=== PATIENT | female | born 1950 | race Caucasian/White ===

== ENCOUNTER → 2016-09-22 | Outpatient (CLI) | payer BC, OTHER ==
[2016-09-22 08:03] LABS: ABSOLUTE EOSINOPHILS # (AUTO) 0.1 10^3/uL (0.0-0.6); ABSOLUTE LYMPHOCYTES (AUTO) 1.5 10^3/uL (0.5-4.7); ABSOLUTE MONOCYTES (AUTO) 0.3 10^3/uL (0.1-1.4); BASOPHILS % (AUTO) 0.6 % (0-2); HEMATOCRIT 40.9 % (36.0-47.0); HEMOGLOBIN 13.6 g/dL (12.0-15.5); HGB HCT DIFFERENCE -0.1; LYMPHOCYTES % (AUTO) 30.1 % (13-45); MEAN CORPUSCULAR HEMOGLOBIN 29.2 pg (27.0-33.4); MEAN CORPUSCULAR HGB CONC 33.3 g/dL (32.0-36.0); MEAN CORPUSCULAR VOLUME 88 fl (80-97); MONOCYTES % (AUTO) 6.5 % (3-13); RED BLOOD COUNT 4.66 10^6/uL (3.72-5.28); RED CELL DISTRIBUTION WIDTH 13.5 % (11.5-14.0); SEGMENTED NEUTROPHILS % (AUTO) 60.8 % (42-78); WHITE BLOOD COUNT 4.9 10^3/uL (4.0-10.5)
== END ==
LOC: OD 07:05
PROVIDERS: ATTEND Family Medicine
DX: E53.8 Deficiency of other specified B group vitamins (principal); E55.9 Vitamin D deficiency, unspecified
CPT/HCPCS: 36415; 82306; 82607; 85025

== ENCOUNTER → 2017-03-26 | Outpatient (CLI) | payer BC, MEDICARE, OTHER ==
[2017-03-26 09:14] LABS: ABSOLUTE BASOPHILS # (AUTO) 0.1 10^3/uL (0.0-0.2); ABSOLUTE EOSINOPHILS # (AUTO) 0.1 10^3/uL (0.0-0.6); ABSOLUTE LYMPHOCYTES (AUTO) 1.4 10^3/uL (0.5-4.7); ABSOLUTE MONOCYTES (AUTO) 0.3 10^3/uL (0.1-1.4); ABSOLUTE NEUT (AUTO) 3.2 10^3/uL (1.7-8.2); EOSINOPHILS % (AUTO) 1.7 % (0-6); HEMATOCRIT 40.1 % (36.0-47.0); HEMOGLOBIN 13.1 g/dL (12.0-15.5); HGB HCT DIFFERENCE -0.8; LYMPHOCYTES % (AUTO) 27.9 % (13-45); MEAN CORPUSCULAR HEMOGLOBIN 28.9 pg (27.0-33.4); MEAN CORPUSCULAR HGB CONC 32.7 g/dL (32.0-36.0); MEAN CORPUSCULAR VOLUME 88 fl (80-97); MONOCYTES % (AUTO) 6.6 % (3-13); RED BLOOD COUNT 4.53 10^6/uL (3.72-5.28); RED CELL DISTRIBUTION WIDTH 13.1 % (11.5-14.0); SEGMENTED NEUTROPHILS % (AUTO) 62.8 % (42-78); WHITE BLOOD COUNT 5.2 10^3/uL (4.0-10.5)
[2017-03-26 09:28] LABS: ALANINE AMINOTRANSFERASE 20 U/L (9-52); ALBUMIN 4.4 g/dL (3.5-5.0); ALKALINE PHOSPHATASE 57 U/L (38-126); ANION GAP 9 (5-19); ASPARTATE AMINO TRANSFERASE 20 U/L (14-36); BILIRUBIN,DIRECT 0.3 mg/dL (0.0-0.4); BILIRUBIN,TOTAL 0.6 mg/dL (0.2-1.3); BLOOD UREA NITROGEN 16 mg/dL (7-20); CALCIUM 9.2 mg/dL (8.4-10.2); CARBON DIOXIDE 28 mmol/L (22-30); CHLORIDE 105 mmol/L (98-107); CHOLESTEROL 215.36 mg/dL (0-200); CREATININE RESULT 0.73 mg/dL (0.52-1.25); Direct HDL 87 mg/dL (>40); GLUCOSE 101 mg/dL (75-110); POTASSIUM 4.5 mmol/L (3.6-5.0); SODIUM 141.5 mmol/L (137-145); TOTAL PROTEIN 6.9 g/dL (6.3-8.2); TRIGLYCERIDES 60 mg/dL (<150)
[2017-03-26 09:38] LABS: DIRECT LDL 99 mg/dL (<100)
== END ==
LOC: OD 07:07
PROVIDERS: ATTEND Family Medicine
DX: E53.8 Deficiency of other specified B group vitamins (principal); R73.9 Hyperglycemia, unspecified; I48.0 Paroxysmal atrial fibrillation; E55.9 Vitamin D deficiency, unspecified; Z79.899 Other long term (current) drug therapy
CPT/HCPCS: 36415; 80053; 80061; 82306; 82607; 83036; 85025

== ENCOUNTER → 2017-10-06 | Outpatient (CLI) | payer MEDICARE, OTHER ==
[2017-10-06 08:25] LABS: ABSOLUTE EOSINOPHILS # (AUTO) 0.1 10^3/uL (0.0-0.6); ABSOLUTE LYMPHOCYTES (AUTO) 1.3 10^3/uL (0.5-4.7); ABSOLUTE MONOCYTES (AUTO) 0.3 10^3/uL (0.1-1.4); ABSOLUTE NEUT (AUTO) 3.1 10^3/uL (1.7-8.2); EOSINOPHILS % (AUTO) 1.7 % (0-6); HEMATOCRIT 39.5 % (36.0-47.0); HEMOGLOBIN 13.4 g/dL (12.0-15.5); LYMPHOCYTES % (AUTO) 26.3 % (13-45); MEAN CORPUSCULAR HEMOGLOBIN 29.3 pg (27.0-33.4); MEAN CORPUSCULAR HGB CONC 33.9 g/dL (32.0-36.0); MEAN CORPUSCULAR VOLUME 87 fl (80-97); MONOCYTES % (AUTO) 6.6 % (3-13); PLATELET COUNT 248 10^3/uL (150-450); RED BLOOD COUNT 4.56 10^6/uL (3.72-5.28); RED CELL DISTRIBUTION WIDTH 12.9 % (11.5-14.0); SEGMENTED NEUTROPHILS % (AUTO) 64.4 % (42-78); TOTAL CELLS COUNTED % (AUTO) 100 %; WHITE BLOOD COUNT 4.8 10^3/uL (4.0-10.5)
[2017-10-06 08:47] LABS: ALANINE AMINOTRANSFERASE 25 U/L (9-52); ALBUMIN 4.9 g/dL (3.5-5.0); ALKALINE PHOSPHATASE 60 U/L (38-126); ANION GAP 7 (5-19); ASPARTATE AMINO TRANSFERASE 20 U/L (14-36); BILIRUBIN,DIRECT 0.2 mg/dL (0.0-0.4); BILIRUBIN,TOTAL 0.4 mg/dL (0.2-1.3); BLOOD UREA NITROGEN 14 mg/dL (7-20); CALCIUM 9.9 mg/dL (8.4-10.2); CARBON DIOXIDE 32 mmol/L (22-30); CHLORIDE 103 mmol/L (98-107); CHOLESTEROL 221.92 mg/dL (0-200); GLUCOSE 107 mg/dL (75-110); POTASSIUM 4.7 mmol/L (3.6-5.0); SODIUM 142.2 mmol/L (137-145); TOTAL PROTEIN 7.2 g/dL (6.3-8.2); TRIGLYCERIDES 65 mg/dL (<150)
[2017-10-06 08:58] LABS: DIRECT LDL 103 mg/dL (<100)
[2017-10-07 06:38] LABS: HEPATITIS C VIRUS AB 0.1 s/co ratio (0.0-0.9)
[2017-10-07 13:25] LABS: VITAMIN D 25-HYDROXY 34.5 ng/mL (30.0-100.0)
== END ==
LOC: OD 07:16
PROVIDERS: ATTEND Family Medicine
DX: E55.9 Vitamin D deficiency, unspecified (principal); Z79.899 Other long term (current) drug therapy; R73.01 Impaired fasting glucose; E53.8 Deficiency of other specified B group vitamins; Z13.220 Encounter for screening for lipoid disorders; Z11.59 Encounter for screening for other viral diseases
CPT/HCPCS: 36415; 80053; 80061; 82306; 82607; 83036; 85025; 86803; 86804

== ENCOUNTER → 2018-03-30 | Outpatient (CLI) | payer MEDICARE, OTHER ==
[2018-03-30 08:20] LABS: ABSOLUTE EOSINOPHILS # (AUTO) 0.1 10^3/uL (0.0-0.6); ABSOLUTE LYMPHOCYTES (AUTO) 1.3 10^3/uL (0.5-4.7); ABSOLUTE MONOCYTES (AUTO) 0.3 10^3/uL (0.1-1.4); ABSOLUTE NEUT (AUTO) 3.2 10^3/uL (1.7-8.2); BASOPHILS % (AUTO) 0.7 % (0-2); EOSINOPHILS % (AUTO) 2.1 % (0-6); HEMATOCRIT 38.4 % (36.0-47.0); HEMOGLOBIN 13.1 g/dL (12.0-15.5); LYMPHOCYTES % (AUTO) 26.6 % (13-45); MEAN CORPUSCULAR HEMOGLOBIN 29.9 pg (27.0-33.4); MEAN CORPUSCULAR HGB CONC 34.1 g/dL (32.0-36.0); MEAN CORPUSCULAR VOLUME 88 fl (80-97); MONOCYTES % (AUTO) 6.6 % (3-13); PLATELET COUNT 240 10^3/uL (150-450); RED BLOOD COUNT 4.39 10^6/uL (3.72-5.28); RED CELL DISTRIBUTION WIDTH 13.5 % (11.5-14.0); TOTAL CELLS COUNTED % (AUTO) 100 %
[2018-03-30 09:04] LABS: ANION GAP 12 (5-19); BLOOD UREA NITROGEN 15 mg/dL (7-20); CALCIUM 9.5 mg/dL (8.4-10.2); CARBON DIOXIDE 30 mmol/L (22-30); CHLORIDE 104 mmol/L (98-107); GLUCOSE 86 mg/dL (75-110); POTASSIUM 4.4 mmol/L (3.6-5.0); SODIUM 145.5 mmol/L (137-145)
[2018-03-30 09:15] LABS: FREE T4 (FREE THYROXINE) 0.93 ng/dL (0.78-2.19)
[2018-03-30 09:29] LABS: THYROID STIMULATING HORMONE 1.93 uIU/mL (0.47-4.68)
== END ==
LOC: OD 07:17
PROVIDERS: ATTEND Family Medicine
DX: I48.0 Paroxysmal atrial fibrillation (principal); E55.9 Vitamin D deficiency, unspecified; E53.8 Deficiency of other specified B group vitamins; R73.01 Impaired fasting glucose; Z79.01 Long term (current) use of anticoagulants; Z79.899 Other long term (current) drug therapy
CPT/HCPCS: 36415; 80048; 82306; 82607; 83036; 84439; 84443; 85025

== ENCOUNTER → 2018-03-31 | Outpatient (CLI) | payer MEDICARE, OTHER ==
--- NOTE | 2018-04-01 08:41 | XCELERA REPORT ---
[address] [address] Lower Extremity Arterial Evaluation Name: CINDY VAN Age: 67 yrs Gender: Female : 1950 Patient Status: Outpatient Patient Location: Study Date: 03/31/2018 01:19 PM Procedure: A color flow and duplex scan of the lower extremity arteries was performed bilaterally with velocity and waveform anaylsis. Ankle brachial indicies performed. Reason For Study: PVD Ordering Physician: NATY LEMON Performed By: Letha Kraus Measurements and Calculations Right Left WILD ANIMAL CARETAKER PSV 203.3 161.1 cm/sec Prox PFA PSV -90.4 -75.5 cm/sec Prox SFA PSV -139.0 -158.7 cm/sec Mid SFA PSV -125.7 -136.2 cm/sec Dist SFA PSV -139.7 -90.8 cm/sec Prox Pop A PSV 78.1 82.0 cm/sec Dist RANDOLPH PSV 124.6 136.9 cm/sec Dist EXCHANGE CLERK PSV 89.1 108.1 cm/sec Rah Pedis PSV 93.7 69.8 cm/sec Right Side Arterial Evaluation Normal velocity and triphasic waveforms noted from the Common Femoral artery to the infrageniculate vessels in the Dorsalis Pedis. 0-19% stenosis at the Dorsalis Pedis artery. Ankle Brachial index is 1.14. Left Side Arterial Evaluation Normal velocity and triphasic waveforms noted from the Common Femoral artery to the Posterior Tibial. Biphasic Anterior Tibial artery.. 0-19% stenosis at the Anterior Tibial artery.. Ankle Brachial index is 1.00. Interpretation Summary Mild hemodynamically significant lesions in the bilateral lower extremities, on duplex imaging, at rest. : NATY LEMON > Florencio Ruvalcaba
== END ==
LOC: SP 12:52
PROVIDERS: ATTEND Family Medicine
DX: I73.9 Peripheral vascular disease, unspecified (principal)
CPT/HCPCS: 93925

== ENCOUNTER → 2018-09-29 | Outpatient (CLI) | payer MEDICARE, OTHER ==
[2018-09-29 08:13] LABS: ABSOLUTE EOSINOPHILS # (AUTO) 0.1 10^3/uL (0.0-0.6); ABSOLUTE LYMPHOCYTES (AUTO) 1.5 10^3/uL (0.5-4.7); ABSOLUTE MONOCYTES (AUTO) 0.4 10^3/uL (0.1-1.4); ABSOLUTE NEUT (AUTO) 3.7 10^3/uL (1.7-8.2); BASOPHILS % (AUTO) 0.6 % (0-2); EOSINOPHILS % (AUTO) 1.7 % (0-6); HEMATOCRIT 40.9 % (36.0-47.0); HEMOGLOBIN 13.8 g/dL (12.0-15.5); LYMPHOCYTES % (AUTO) 26.3 % (13-45); MEAN CORPUSCULAR HEMOGLOBIN 29.1 pg (27.0-33.4); MEAN CORPUSCULAR HGB CONC 33.7 g/dL (32.0-36.0); MEAN CORPUSCULAR VOLUME 86 fl (80-97); MONOCYTES % (AUTO) 6.6 % (3-13); PLATELET COUNT 256 10^3/uL (150-450); RED BLOOD COUNT 4.74 10^6/uL (3.72-5.28); RED CELL DISTRIBUTION WIDTH 13.2 % (11.5-14.0); SEGMENTED NEUTROPHILS % (AUTO) 64.8 % (42-78); TOTAL CELLS COUNTED % (AUTO) 100 %; WHITE BLOOD COUNT 5.7 10^3/uL (4.0-10.5)
[2018-09-29 08:35] LABS: ALANINE AMINOTRANSFERASE 22 U/L (9-52); ALBUMIN 4.9 g/dL (3.5-5.0); ALKALINE PHOSPHATASE 70 U/L (38-126); ANION GAP 9 (5-19); ASPARTATE AMINO TRANSFERASE 20 U/L (14-36); BILIRUBIN,DIRECT 0.1 mg/dL (0.0-0.4); BILIRUBIN,TOTAL 0.7 mg/dL (0.2-1.3); BLOOD UREA NITROGEN 14 mg/dL (7-20); CALCIUM 9.9 mg/dL (8.4-10.2); CARBON DIOXIDE 29 mmol/L (22-30); CHLORIDE 103 mmol/L (98-107); GLUCOSE 102 mg/dL (75-110); POTASSIUM 4.1 mmol/L (3.6-5.0); SODIUM 140.5 mmol/L (137-145); TOTAL PROTEIN 7.2 g/dL (6.3-8.2); TRIGLYCERIDES 65 mg/dL (<150)
[2018-09-29 08:46] LABS: DIRECT LDL 95 mg/dL (<100)
== END ==
LOC: OD 07:23
PROVIDERS: ATTEND Family Medicine
DX: E55.9 Vitamin D deficiency, unspecified (principal); R73.01 Impaired fasting glucose; E53.8 Deficiency of other specified B group vitamins; Z79.899 Other long term (current) drug therapy; I48.0 Paroxysmal atrial fibrillation; Z79.01 Long term (current) use of anticoagulants
CPT/HCPCS: 36415; 80053; 80061; 82306; 82607; 83036; 85025

== ENCOUNTER → 2018-12-29 | Outpatient (CLI) | payer MEDICARE, OTHER ==
[2018-12-29 08:27] LABS: ABSOLUTE EOSINOPHILS # (AUTO) 0.1 10^3/uL (0.0-0.6); ABSOLUTE LYMPHOCYTES (AUTO) 1.8 10^3/uL (0.5-4.7); ABSOLUTE MONOCYTES (AUTO) 0.3 10^3/uL (0.1-1.4); ABSOLUTE NEUT (AUTO) 3.2 10^3/uL (1.7-8.2); BASOPHILS % (AUTO) 0.7 % (0-2); HEMATOCRIT 38.3 % (36.0-47.0); HEMOGLOBIN 13.2 g/dL (12.0-15.5); LYMPHOCYTES % (AUTO) 32.5 % (13-45); MEAN CORPUSCULAR HEMOGLOBIN 30.2 pg (27.0-33.4); MEAN CORPUSCULAR HGB CONC 34.5 g/dL (32.0-36.0); MEAN CORPUSCULAR VOLUME 88 fl (80-97); MONOCYTES % (AUTO) 6.3 % (3-13); PLATELET COUNT 218 10^3/uL (150-450); RED BLOOD COUNT 4.37 10^6/uL (3.72-5.28); RED CELL DISTRIBUTION WIDTH 13.5 % (11.5-14.0); SEGMENTED NEUTROPHILS % (AUTO) 58.5 % (42-78); TOTAL CELLS COUNTED % (AUTO) 100 %; WHITE BLOOD COUNT 5.5 10^3/uL (4.0-10.5)
== END ==
LOC: OD 07:14
PROVIDERS: ATTEND Family Medicine
DX: Z79.01 Long term (current) use of anticoagulants (principal)
CPT/HCPCS: 36415; 85025

== ENCOUNTER → 2019-03-28 | Outpatient (CLI) | payer MEDICARE, OTHER ==
[2019-03-28 08:27] LABS: ABSOLUTE BASOPHILS # (AUTO) 0.1 10^3/uL (0.0-0.2); ABSOLUTE EOSINOPHILS # (AUTO) 0.1 10^3/uL (0.0-0.6); ABSOLUTE LYMPHOCYTES (AUTO) 1.8 10^3/uL (0.5-4.7); ABSOLUTE MONOCYTES (AUTO) 0.3 10^3/uL (0.1-1.4); ABSOLUTE NEUT (AUTO) 3.8 10^3/uL (1.7-8.2); BASOPHILS % (AUTO) 0.9 % (0-2); EOSINOPHILS % (AUTO) 1.6 % (0-6); HEMATOCRIT 39.6 % (36.0-47.0); HEMOGLOBIN 13.1 g/dL (12.0-15.5); LYMPHOCYTES % (AUTO) 29.8 % (13-45); MEAN CORPUSCULAR HEMOGLOBIN 29.3 pg (27.0-33.4); MEAN CORPUSCULAR HGB CONC 33.1 g/dL (32.0-36.0); MEAN CORPUSCULAR VOLUME 88 fl (80-97); MONOCYTES % (AUTO) 5.5 % (3-13); PLATELET COUNT 258 10^3/uL (150-450); RED BLOOD COUNT 4.47 10^6/uL (3.72-5.28); RED CELL DISTRIBUTION WIDTH 13.2 % (11.5-14.0); SEGMENTED NEUTROPHILS % (AUTO) 62.2 % (42-78); TOTAL CELLS COUNTED % (AUTO) 100 %; WHITE BLOOD COUNT 6.1 10^3/uL (4.0-10.5)
== END ==
LOC: OD 07:09
PROVIDERS: ATTEND Family Medicine
DX: Z51.81 Encounter for therapeutic drug level monitoring (principal); Z79.01 Long term (current) use of anticoagulants
CPT/HCPCS: 36415; 85025

== ENCOUNTER → 2019-04-05 | Outpatient (CLI) | payer MEDICARE, OTHER ==
[2019-04-05 08:55] LABS: ALANINE AMINOTRANSFERASE 20 U/L (9-52); ALBUMIN 4.4 g/dL (3.5-5.0); ALKALINE PHOSPHATASE 56 U/L (38-126); ANION GAP 8 (5-19); ASPARTATE AMINO TRANSFERASE 23 U/L (14-36); BILIRUBIN,DIRECT 0.3 mg/dL (0.0-0.4); BILIRUBIN,TOTAL 0.7 mg/dL (0.2-1.3); BLOOD UREA NITROGEN 17 mg/dL (7-20); CALCIUM 9.5 mg/dL (8.4-10.2); CARBON DIOXIDE 29 mmol/L (22-30); CHLORIDE 103 mmol/L (98-107); GLUCOSE 94 mg/dL (75-110); POTASSIUM 4.5 mmol/L (3.6-5.0); SODIUM 140.1 mmol/L (137-145); TOTAL PROTEIN 6.8 g/dL (6.3-8.2)
[2019-04-05 09:08] LABS: FREE T4 (FREE THYROXINE) 0.99 ng/dL (0.78-2.19)
[2019-04-05 09:22] LABS: THYROID STIMULATING HORMONE 1.65 uIU/mL (0.47-4.68)
== END ==
LOC: OD 07:07
PROVIDERS: ATTEND Family Medicine
DX: I95.1 Orthostatic hypotension (principal); R53.83 Other fatigue; E55.9 Vitamin D deficiency, unspecified; E53.8 Deficiency of other specified B group vitamins
CPT/HCPCS: 36415; 80053; 82306; 82533; 82607; 84439; 84443

== ENCOUNTER → 2019-06-23 | Outpatient (CLI) | payer MEDICARE, OTHER ==
[2019-06-23 08:01] LABS: ABSOLUTE EOSINOPHILS # (AUTO) 0.1 10^3/uL (0.0-0.6); ABSOLUTE LYMPHOCYTES (AUTO) 1.6 10^3/uL (0.5-4.7); ABSOLUTE MONOCYTES (AUTO) 0.3 10^3/uL (0.1-1.4); ABSOLUTE NEUT (AUTO) 2.8 10^3/uL (1.7-8.2); BASOPHILS % (AUTO) 0.8 % (0-2); EOSINOPHILS % (AUTO) 2.5 % (0-6); HEMATOCRIT 39.2 % (36.0-47.0); HEMOGLOBIN 13.1 g/dL (12.0-15.5); LYMPHOCYTES % (AUTO) 33.1 % (13-45); MEAN CORPUSCULAR HEMOGLOBIN 29.5 pg (27.0-33.4); MEAN CORPUSCULAR HGB CONC 33.4 g/dL (32.0-36.0); MEAN CORPUSCULAR VOLUME 88 fl (80-97); MONOCYTES % (AUTO) 6.9 % (3-13); PLATELET COUNT 228 10^3/uL (150-450); RED BLOOD COUNT 4.44 10^6/uL (3.72-5.28); RED CELL DISTRIBUTION WIDTH 13.4 % (11.5-14.0); SEGMENTED NEUTROPHILS % (AUTO) 56.7 % (42-78); TOTAL CELLS COUNTED % (AUTO) 100 %; WHITE BLOOD COUNT 4.9 10^3/uL (4.0-10.5)
== END ==
LOC: OD 07:21
PROVIDERS: ATTEND Family Medicine
DX: Z51.81 Encounter for therapeutic drug level monitoring (principal); Z79.01 Long term (current) use of anticoagulants
CPT/HCPCS: 36415; 85025

== ENCOUNTER 2019-08-12 12:59 | Emergency (ER) | payer MEDICARE, OTHER ==
[2019-08-12] MEDS ORDERED: DIPH/PERTUSS(ACELL)/TETANUS VAC/PF 0.5 ML SYR (>=10YO) IM ONE (13:16)
[2019-08-12] MEDS ORDERED: ACETAMINOPHEN 325 MG TABLET PO ONE (13:16)
[2019-08-12] MEDS ORDERED: OXYCODONE HCL IR 5 MG TABLET PO ONE (13:16)
--- NOTE | 2019-08-12 13:18 | ER Document Report ---
ED Medical Screen (RME) - General Chief Complaint: Arm Problem Stated Complaint: FALL/RIGHT SHOULDER PAIN Time Seen by Provider: 08/12/19 13:12 Primary Care Provider: NATY LEMON MD [Primary Care Provider] - Follow up as needed TRAVEL OUTSIDE OF THE [place] IN LAST 30 DAYS: No - HPI Notes: 08/12/19 13:16 Patient is a 68-year-old female who presents complaining of possible fracture to her forearm status post fall and complaining of left wrist pain as well. Patient states that she is going up the stairs when her fell on top of her and she landed on her arms. She did not hit her head or lose conscious otherwise. She is able to ambulate without difficulty. Last tetanus was more than 5 years ago. Denies drug allergies. I have treated and performed a rapid initial assessment of this patient. A comprehensive ED assessment and evaluation of the patient, analysis of test results and completion of medical decision making process will be conducted by additional ED providers. PHYSICAL EXAMINATION: GENERAL: Well-appearing, well-nourished and in no acute distress. A&Ox4. Answers questions appropriately. There is a small puncture noted to the wrist with deformity and tenderness to the distal forearm. ? Open fracture. There is tenderness to the left wrist as well. No obvious tenderness to the shoulders or clavicles. No midline tenderness of the neck. Head is otherwise atraumatic at this time. - Related Data Allergies/Adverse Reactions: No Known Allergies Allergy (Unverified 08/12/19 13:15) Home Medications: asa 81 Past Medical History - Social History Chew tobacco use (# tins/day): No Frequency of alcohol use: None Drug Abuse: None - Past Medical History Cardiac Medical History: Denies: Hx Coronary Artery Disease, Hx Heart Attack, Hx Hypertension Pulmonary Medical History: Denies: Hx Asthma, Hx Bronchitis, Hx COPD, Hx Pneumonia Neurological Medical History: Denies: Hx Seizures Musculoskeltal Medical History: Denies Hx Arthritis Past Surgical History: Denies: Hx Hysterectomy - Immunizations Hx Diphtheria, Pertussis, Tetanus Vaccination: No Physical Exam - Vital signs Vitals: Temp Pulse Resp BP Pulse Ox 97.4 F 67 18 124/67 96 08/12/19 13:05 08/12/19 13:05 08/12/19 13:05 08/12/19 13:05 08/12/19 13:05 Course - Vital Signs Vital signs: Temp Pulse Resp BP Pulse Ox 97.4 F 67 18 124/67 96 08/12/19 13:05 08/12/19 13:05 08/12/19 13:05 08/12/19 13:05 08/12/19 13:05 Doctor's Discharge - Discharge Referrals: NATY LEMON MD [Primary Care Provider] - Follow up as needed
--- NOTE | 2019-08-12 14:16 | RADIOLOGY REPORT (SQ) ---
EXAM DESCRIPTION: FOREARM RIGHT; HUMERUS RIGHT COMPLETED DATE/TIME: 08/12/2019 1:59 pm REASON FOR STUDY: pain s/p fall, deformity noted, ?open fx; pain s/p fall COMPARISON: None. NUMBER OF VIEWS: Two views. TECHNIQUE: Two radiographic images acquired of the right forearm, including elbow and wrist in at le ast one projection. LIMITATIONS: None. FINDINGS: MINERALIZATION: Normal. BONES: Comminuted and impacted intra-articular fractures of the distal right radius. The distal righ t ulna is suspicious for nondisplaced fracture. Widening of the scapholunate interval is noted. SOFT TISSUES: No obvious swelling or foreign body. OTHER: No other significant finding. IMPRESSION: 1. Comminuted and impacted intra-articular fractures of the distal right radius. The di stal right ulna is suspicious for nondisplaced fracture. Widening of the scapholunate interval is no jordyn. 2. No fracture or dislocation of the right humerus or proximal radius or ulna. TECHNICAL DOCUMENTATION: JOB ID: [id number] [email or web address]- All Rights Reserved Reading location - IP/workstation name: [email or web address]
--- NOTE | 2019-08-12 14:16 | RADIOLOGY REPORT (SQ) ---
EXAM DESCRIPTION: FOREARM RIGHT; HUMERUS RIGHT COMPLETED DATE/TIME: 08/12/2019 1:59 pm REASON FOR STUDY: pain s/p fall, deformity noted, ?open fx; pain s/p fall COMPARISON: None. NUMBER OF VIEWS: Two views. TECHNIQUE: Two radiographic images acquired of the right forearm, including elbow and wrist in at le ast one projection. LIMITATIONS: None. FINDINGS: MINERALIZATION: Normal. BONES: Comminuted and impacted intra-articular fractures of the distal right radius. The distal righ t ulna is suspicious for nondisplaced fracture. Widening of the scapholunate interval is noted. SOFT TISSUES: No obvious swelling or foreign body. OTHER: No other significant finding. IMPRESSION: 1. Comminuted and impacted intra-articular fractures of the distal right radius. The di stal right ulna is suspicious for nondisplaced fracture. Widening of the scapholunate interval is no jordyn. 2. No fracture or dislocation of the right humerus or proximal radius or ulna. TECHNICAL DOCUMENTATION: JOB ID: [id number] [employer]- All Rights Reserved Reading location - IP/workstation name: [email or web address]
--- NOTE | 2019-08-12 14:18 | RADIOLOGY REPORT (SQ) ---
EXAM DESCRIPTION: WRIST LEFT 3 VIEWS COMPLETED DATE/TIME: 08/12/2019 1:59 pm REASON FOR STUDY: pain s/p fall COMPARISON: None. NUMBER OF VIEWS: Three views. TECHNIQUE: AP, lateral, and oblique radiographic images acquired of the left wrist. LIMITATIONS: None. FINDINGS: MINERALIZATION: Normal. BONES: There is a tiny ossific fragment projecting over the dorsal distal left radius on lateral view only. SOFT TISSUES: No soft tissue swelling. No foreign body. OTHER: No other significant finding. IMPRESSION: There is a tiny ossific fragment projecting over the dorsal distal left radius on latera l view only, concerning for avulsion fracture. Correlate with palpable point tenderness. TECHNICAL DOCUMENTATION: JOB ID: [id number] [employer]- All Rights Reserved Reading location - IP/workstation name: [email or web address]
--- NOTE | 2019-08-12 14:50 | ER Document Report ---
ED Fall - General Chief Complaint: Arm Problem Stated Complaint: FALL/RIGHT SHOULDER PAIN Time Seen by Provider: 08/12/19 13:12 Primary Care Provider: NATY LEMON MD [Primary Care Provider] - Follow up as needed HERNAN DOMÍNGUEZ JR, DO [ACTIVE PROVISIONAL STAFF] - 08/14/19 (Call Wednesday morning to schedule a Wednesday appointment.) Mode of Arrival: Ambulatory Information source: Patient Notes: This 68-year-old female patient comes emergency room after she reports her spouse fell on her while she was helping him up the stairs. She injured her right arm and right wrist, her left elbow and left wrist. The right wrist is the area of the worst pain. There was no loss consciousness. Patient is on medication now is a baby aspirin every day for her paroxysmal atrial fibrillation. TRAVEL OUTSIDE OF THE [place] IN LAST 30 DAYS: No - Related data Allergies/Adverse Reactions: No Known Allergies Allergy (Unverified 08/12/19 13:15) Home Medications: asa 81 Past Medical History - General Information source: Patient - Social History Smoking Status: Former Smoker Cigarette use (# per day): No Chew tobacco use (# tins/day): No Smoking Education Provided: No Frequency of alcohol use: Occasional Drug Abuse: None Lives with: Spouse/Significant other Family History: Reviewed & Not Pertinent Patient has suicidal ideation: No Patient has homicidal ideation: No - Past Medical History Cardiac Medical History: Reports: Hx Atrial Fibrillation - Paroxysmal atrial fibrillation Past Surgical History: Reports: Hx Orthopedic Surgery - Left knee meniscus tear surgery, Hx Tonsillectomy, Hx Tubal Ligation. Denies: Hx Hysterectomy - Immunizations Hx Diphtheria, Pertussis, Tetanus Vaccination: No Review of Systems - Review of Systems Constitutional: No symptoms reported EENT: No symptoms reported Cardiovascular: No symptoms reported Respiratory: No symptoms reported Gastrointestinal: No symptoms reported Genitourinary: No symptoms reported Female Genitourinary: Post menopausal Musculoskeletal: No symptoms reported Skin: No symptoms reported Hematologic/Lymphatic: No symptoms reported Neurological/Psychological: No symptoms reported Physical Exam - Vital signs Vitals: Temp Pulse Resp BP Pulse Ox 97.4 F 67 18 124/67 96 08/12/19 13:05 08/12/19 13:05 08/12/19 13:05 08/12/19 13:05 08/12/19 13:05 Interpretation: Normal - General General appearance: Alert In distress: Mild - HEENT Head: Normocephalic, Atraumatic Eyes: Normal Pupils: PERRL - Respiratory Respiratory status: No respiratory distress Breath sounds: Normal - Cardiovascular Rhythm: Regular Heart sounds: Normal auscultation Murmur: No - Abdominal Inspection: Normal - Back Back: Normal - Extremities General upper extremity: Other - Right shoulder upper arm elbow forearm are little bit tender with no deformity. Right wrist is grossly swollen, ecchymotic, exquisitely tender with some radial deviation of the hand. The left wrist has some swelling and tenderness, no ecchymosis. The left elbow is tender to palpate the radial head. General lower extremity: Normal inspection - Neurological Neuro grossly intact: Yes - Psychological Associated symptoms: Normal affect, Normal mood Course - Re-evaluation Re-evalutation: 08/12/19 16:14 The sugar tong splint was placed on the right forearm and wrist by the PCT. It fits well and provides considerable comfort to the patient. She has good capillary refill and normal sensation to her fingertips. A sling was provided for the right arm by the PCT and it also fits well and provide support for the extremity. A Velcro cock-up splint was placed on the left wrist, it also provides comfort by limiting motion at the wrist. - Vital Signs Vital signs: Temp Pulse Resp BP Pulse Ox 97.4 F 67 18 124/67 96 08/12/19 13:05 08/12/19 13:05 08/12/19 13:05 08/12/19 13:05 08/12/19 13:05 - Diagnostic Test Radiology reviewed: Image reviewed, Reports reviewed - Right humerus forearm and wrist show comminuted, impacted intra-articular fractures of the distal right radius the distal right ulna is suspicious for nondisplaced fracture. There is widening of the scapholunate interval noted. - Consults Dr. Domínguez Time consulted: 15:50 Consulted provider: follow-up in office - Will see in the office on Wednesday. Discharge - Discharge Clinical Impression: Fracture of right wrist Qualifiers: Encounter type: initial encounter Fracture type: closed Qualified Code(s): S62.101A - Fracture of unspecified carpal bone, right wrist, initial encounter for closed fracture Sprain of left wrist Qualifiers: Encounter type: initial encounter Qualified Code(s): S63.502A - Unspecified sprain of left wrist, initial encounter Condition: Stable Disposition: HOME, SELF-CARE Additional Instructions: Your x-rays show a fracture of the right wrist and sprain of the left wrist with possible minor avulsion fracture in the right wrist. Elevate your hand is much as possible. Use ice packs to help reduce swelling. Take the pain medication as needed. Call Dr. Domínguez at [facility] Wednesday for a Wednesday appointment. If you have any problems making the appointment, call him on his cell phone at [phone]. RETURN TO THE EMERGENCY ROOM IF ANY NEW OR WORSENING SYMPTOMS. Prescriptions: Oxycodone HCl/Acetaminophen [Percocet 5-325 mg Tablet] 1 tab PO ASDIR PRN #15 tablet PRN Reason: Referrals: NATY LEMON MD [Primary Care Provider] - Follow up as needed HERNAN DOMÍNGUEZ JR, DO [ACTIVE PROVISIONAL STAFF] - 08/14/19 (Call Wednesday to schedule a Wednesday appointment.)
--- NOTE | 2019-08-12 15:23 | RADIOLOGY REPORT (SQ) ---
EXAM DESCRIPTION: ELBOW LEFT OVER 2 VIEWS COMPLETED DATE/TIME: 08/12/2019 3:08 pm REASON FOR STUDY: Fall, radial head pain COMPARISON: None. NUMBER OF VIEWS: Four views. TECHNIQUE: AP, lateral, and both oblique radiographic images acquired of the left elbow. LIMITATIONS: None. FINDINGS: MINERALIZATION: Normal. BONES: No acute fracture or dislocation. No worrisome bone lesions. JOINT: No effusion. SOFT TISSUES: No soft tissue swelling. No foreign body. OTHER: No other significant finding. IMPRESSION: NEGATIVE STUDY OF THE LEFT ELBOW. NO RADIOGRAPHIC EVIDENCE OF ACUTE INJURY. TECHNICAL DOCUMENTATION: JOB ID: [id number] [employer]- All Rights Reserved Reading location - IP/workstation name: [email or web address]
[2019-08-12 16:29] VITALS: BP 158/87
== END 2019-08-12 16:33 | disposition home or self-care (01) ==
LOC: ER 12:59
DX: S62.101A Fracture of unspecified carpal bone, right wrist, initial encounter for closed fracture (principal); S63.502A Unspecified sprain of left wrist, initial encounter; M25.511 Pain in right shoulder; W03.XXXA Other fall on same level due to collision with another person, initial encounter; Y93.F9 Activity, other caregiving; Y92.009 Unspecified place in unspecified non-institutional (private) residence as the place of occurrence of the external cause; Z98.51 Tubal ligation status; I48.91 Unspecified atrial fibrillation; Z79.82 Long term (current) use of aspirin; Z23 Encounter for immunization
CPT/HCPCS: 99283; 90471; 73080; 73090; 73060; 73110; 90715; 29125; L3908; A9270 ×2

== ENCOUNTER 2019-08-24 08:00 | Day surgery (SDC) | payer MEDICARE, OTHER ==
[~2019-08-24 08:00] MED LIST: ACETAMINOPHEN 325 MG TABLET PO PRN; CEFAZOLIN SODIUM 2 GM in DEXTROSE 5%-WATER 100 ML IV PRN; LACTATED RINGERS 1000 ML IV PRN; LIDOCAINE 0.5% INJ-PF (5 MG/ML) 50 ML SDV SUBCUT PRN; OXYCODONE HCL SR 10 MG TABLET PO PRN
[2019-08-24 09:05] LABS: HEMATOCRIT 37.6 % (36.0-47.0); HEMOGLOBIN 12.7 g/dL (12.0-15.5); MEAN CORPUSCULAR HEMOGLOBIN 29.4 pg (27.0-33.4); MEAN CORPUSCULAR HGB CONC 33.7 g/dL (32.0-36.0); MEAN CORPUSCULAR VOLUME 87 fl (80-97); PLATELET COUNT 288 10^3/uL (150-450); RED BLOOD COUNT 4.31 10^6/uL (3.72-5.28); RED CELL DISTRIBUTION WIDTH 12.9 % (11.5-14.0); WHITE BLOOD COUNT 6.8 10^3/uL (4.0-10.5)
[2019-08-24] MEDS ORDERED: OXYCODONE HCL SR 10 MG TABLET PO ONE (09:10)
[2019-08-24] MEDS ORDERED: ACETAMINOPHEN 325 MG TABLET ONE (09:10)
[2019-08-24] MEDS ORDERED: FENTANYL CITRATE INJ/PF 250 MCG/5 ML AMPULE ONE (10:00)
[2019-08-24] MEDS ORDERED: HYDROMORPHONE HCL INJ/PF 2 MG/ML AMPULE ONE ×2 (10:00→14:39)
[2019-08-24] MEDS ORDERED: MIDAZOLAM 2 MG/2 ML INJ ONE ×2 (10:00→13:24)
[2019-08-24] MEDS ORDERED: ONDANSETRON HCL INJ/PF 4 MG/2 ML SDV ONE (10:01)
[2019-08-24] MEDS ORDERED: PROPOFOL INJ 200 MG/20 ML VIAL IV ONE (10:01)
[2019-08-24] MEDS ORDERED: DEXAMETHASONE SOD PHOSPHATE INJ 4 MG/1 ML VIAL ONE (10:01)
[2019-08-24] MEDS ORDERED: KETOROLAC TROMETHAMINE INJ/PF 30 MG/1 ML SDV ONE (10:19)
[2019-08-24] MEDS ORDERED: BUPIVACAINE HCL 0.25 % INJ/PF (2.5 MG/1 ML) 30 ML VIAL ONE (10:19)
[2019-08-24] MEDS ORDERED: KETOROLAC TROMETHAMINE INJ/PF 30 MG/1 ML SDV INJ ONE (10:58)
[2019-08-24] MEDS ORDERED: BUPIVACAINE HCL 0.25 % INJ/PF (2.5 MG/1 ML) 30 ML VIAL INJ ONE (10:58)
[2019-08-24] MEDS ORDERED: MEPERIDINE HCL/PF INJ 25 MG/1 ML DISP.SYRIN IV PRN (11:52)
[2019-08-24] MEDS ORDERED: MORPHINE SULFATE 10 MG/ML INJ IV PRN (11:52)
[2019-08-24] MEDS ORDERED: PROMETHAZINE HCL INJ 25 MG/1 ML VIAL IV PRN (11:52)
[2019-08-24] MEDS ORDERED: FENTANYL CITRATE INJ/PF 100 MCG/2 ML AMPUL IV PRN ×3 (11:52)
[2019-08-24] MEDS ORDERED: DIPHENHYDRAMINE HCL 50 MG/ML VIAL IV PRN (11:52)
[2019-08-24] MEDS ORDERED: OXYCODONE HCL IR 5 MG TABLET PO PRN (13:09)
[2019-08-24] MEDS: FENTANYL CITRATE INJ/PF 100 MCG/2 ML AMPUL ONE ×2 (13:25→13:30)
[2019-08-24] MEDS ORDERED: ROPIVACAINE HCL 0.5% INJ/PF (5 MG/1 ML) 30 ML SDV ONE (13:29)
--- NOTE | 2019-08-24 13:29 | Operative Report ---
Operative Report DATE OF SURGERY: 08/24/19 PREOPERATIVE DIAGNOSIS: Right distal radius intra-articular fracture with assoc iated distal ulnar fracture POSTOPERATIVE DIAGNOSIS: Right distal radius intra-articular fracture with associated distal ulnar fracture OPERATION: Right distal radius intra-articular fracture open reduction internal fixation. SURGEON: HERNAN DOMÍNGUEZ JR ANESTHESIA: GA COMPLICATIONS: None ESTIMATED BLOOD LOSS: 20 cc PROCEDURE: INDICATIONS FOR OPERATION: This is a 68 year-old female who fell at home landing on her outstretched right hand, sustained a right distal radius fracture. The patient was seen and evaluated in my clinic, where a closed reduction was performed with adequate reduction. However upon follow-up 1 week later they had lost their reduction and at this time we had a conversation regarding the risks and benefits of surgery versus continued nonoperative management. After informed consent was obtained, we scheduled the patient for open reduction internal fixation of the right distal radius. DESCRIPTION OF OPERATION: The patient was brought to the operating room and placed in the supine position. Then, 2 g of cefazolin was given preoperatively. After satisfactory general endotracheal anesthesia was administrated, a tourniquet, was placed on the right upper arm, the right upper extremity was prepped and draped in regular sterile routine fashion. Esmarch was utilized to exsanguinate the arm and the tourniquet was then inflated. The Flexor Carpi Radialis approach was performed. The FCR tendon was identified and was retracted ulnarly. The fascia was then opened, and the pronator quadratus was incised sharply from the lateral border of the distal radius. The fracture was identified and was and lightly debrided. The fracture was shortened and severely comminuted. There was also notable bone voids after provisional reduction. Once we got the styloid piece out to length we provisionally fix that with a K wire. Subsequently we reduced the lunate fragment indirectly and placed another K wire. A plate was chosen and applied to the radius and under fluoroscopic visualization we assessed plate placement as well as fracture reduction. At this time it was apparent that the lunate fragment was malrotated. Due to significant comminution and bone loss this piece was very difficult to maintain. We were able to put 2 rafting K wires to raft the articular surface from the radial styloid to the lunate. Due to the void between the lunate facet and the styloid we utilized V toss bone substitute to fill this void. We then reapplied the plate and placed distal locking screws followed by a screw in the oblong hole. Once we had adequate plate placement we then placed final locking screws distally followed by cortical screws proximally in the shaft holes. The mini C-arm confirmed appropriate reduction and good alignment of the radial height as well as the inclination. Unfortunately the lunate screw did not have dorsal bone to contact and was found to be intra- articular. The screw was ultimately removed and left void, as the more proximal lunate screw appeared to be holding good reduction. Again, the mini C-arm confirmed good anatomic alignment on final images. Briefly the fracture was taken through live flouroscopy to ensure that there was no dorsal or articular penetration of the screws. The tourniquet was deflated, and hemostasis was ensured with electrocautery. The pronator quadratus was sewn over the plate with 3-0 Monocryl suture. The subcutaneous was then closed with 2-0 monocryl and the skin with running 3-0 monocryl. Dressing was then applied in the form of xeroform, 4x4, ABD, and a loose wrap with a ramón and kerlex, followed by a loosely applied santiago wrap. They were awakened from anesthesia and transferred to the PACU in stable condition.
[2019-08-24] MEDS ORDERED: OXYCODONE HCL IR 5 MG TABLET ONE ×2 (14:05→14:06)
--- NOTE | 2019-08-24 14:21 | RADIOLOGY REPORT (SQ) ---
EXAM DESCRIPTION: WRIST RIGHT 2 VIEWS COMPLETED DATE/TIME: 08/24/2019 1:30 pm REASON FOR STUDY: POST OP CHECK PLACEMENT S52.501A UNSP FRACTURE OF THE LOWER END OF RIGHT RADIUS, INI Z79.899 OTHER LEAD SYSTEMS ENGINEER (CURRENT) DRUG THERAPY COMPARISON: None. NUMBER OF VIEWS: Three views. TECHNIQUE: AP, lateral, and oblique radiographic images acquired of the right wrist. LIMITATIONS: None. FINDINGS: Postoperative images show a volar compression plate on the distal radius with multiple scr ews. There is also a fracture of distal ulna with no significant displacement. IMPRESSION: ORIF distal radial fracture. Refer to operative note for further information. TECHNICAL DOCUMENTATION: JOB ID: [id number] [employer]- All Rights Reserved Reading location - IP/workstation name: [email or web address]
--- NOTE | 2019-08-24 14:22 | RADIOLOGY REPORT (SQ) ---
EXAM DESCRIPTION: NO CHG FLUORO; WRIST RIGHT 2 VIEWS COMPLETED DATE/TIME: 08/24/2019 1:49 pm REASON FOR STUDY: ORIF RIGHT WRIST ASST WITH FLUORO IN OR COMPARISON: None. FLUOROSCOPY TIME: 35 seconds 3 Images saved to PACS LIMITATIONS: None. PROCEDURE: ORIF right wrist fracture. FINDINGS: Images from fluoro document placement of a volar compression plate on the distal radius wi th multiple screws. IMPRESSION: ORIF right radial fracture. Refer to operative note for further information. COMMENT: PQRS 6045F: Fluoroscopy time of the procedure is documented in the report. TECHNICAL DOCUMENTATION: JOB ID: [id number] [employer]- All Rights Reserved Reading location - IP/workstation name: [email or web address]
--- NOTE | 2019-08-24 14:22 | RADIOLOGY REPORT (SQ) ---
EXAM DESCRIPTION: NO CHG FLUORO; WRIST RIGHT 2 VIEWS COMPLETED DATE/TIME: 08/24/2019 1:49 pm REASON FOR STUDY: ORIF RIGHT WRIST ASST WITH FLUORO IN OR COMPARISON: None. FLUOROSCOPY TIME: 35 seconds 3 Images saved to PACS LIMITATIONS: None. PROCEDURE: ORIF right wrist fracture. FINDINGS: Images from fluoro document placement of a volar compression plate on the distal radius wi th multiple screws. IMPRESSION: ORIF right radial fracture. Refer to operative note for further information. COMMENT: PQRS 6045F: Fluoroscopy time of the procedure is documented in the report. TECHNICAL DOCUMENTATION: JOB ID: [id number] [employer]- All Rights Reserved Reading location - IP/workstation name: [email or web address]
[2019-08-24 16:21] VITALS: BP 133/81
[2019-08-24] MEDS ORDERED: SUCCINYLCHOLINE CHLORIDE INJ 200 MG/10 ML VIAL ONE (18:39)
--- NOTE | 2019-08-24 19:14 | EKG REPORT ---
SEVERITY:- ABNORMAL ECG - SINUS RHYTHM INCOMPLETE RIGHT BUNDLE BRANCH BLOCK : Confirmed by: Jackelyn Romero MD 24-Aug-2019 19:13:34
== END 2019-08-24 16:10 | disposition home or self-care (01) ==
LOC: OROUT 08:00
PROVIDERS: ATTEND Orthopaedic Surgery
DX: S52.571A Other intraarticular fracture of lower end of right radius, initial encounter for closed fracture (principal); S52.601A Unspecified fracture of lower end of right ulna, initial encounter for closed fracture; W19.XXXA Unspecified fall, initial encounter; M25.532 Pain in left wrist; I48.91 Unspecified atrial fibrillation; Z79.899 Other long term (current) drug therapy; Z79.82 Long term (current) use of aspirin; Z87.891 Personal history of nicotine dependence
CPT/HCPCS: 36415; 85027; 73100; 93005; 93010; 01830; 25608; J2795; A9270 ×3; J2250; J0690; J1100; J3010 ×2; J1885; J1170; J0330; J2405; J7060; J2704

== ENCOUNTER → 2019-09-27 | Outpatient (CLI) | payer MEDICARE, OTHER ==
[2019-09-27 08:14] LABS: ABSOLUTE EOSINOPHILS # (AUTO) 0.1 10^3/uL (0.0-0.6); ABSOLUTE LYMPHOCYTES (AUTO) 1.2 10^3/uL (0.5-4.7); ABSOLUTE MONOCYTES (AUTO) 0.3 10^3/uL (0.1-1.4); ABSOLUTE NEUT (AUTO) 2.5 10^3/uL (1.7-8.2); BASOPHILS % (AUTO) 0.8 % (0-2); EOSINOPHILS % (AUTO) 3.3 % (0-6); HEMATOCRIT 38.9 % (36.0-47.0); HEMOGLOBIN 13.4 g/dL (12.0-15.5); LYMPHOCYTES % (AUTO) 29.6 % (13-45); MEAN CORPUSCULAR HEMOGLOBIN 30.1 pg (27.0-33.4); MEAN CORPUSCULAR HGB CONC 34.4 g/dL (32.0-36.0); MEAN CORPUSCULAR VOLUME 87 fl (80-97); MONOCYTES % (AUTO) 6.6 % (3-13); PLATELET COUNT 241 10^3/uL (150-450); RED BLOOD COUNT 4.46 10^6/uL (3.72-5.28); RED CELL DISTRIBUTION WIDTH 13.3 % (11.5-14.0); SEGMENTED NEUTROPHILS % (AUTO) 59.7 % (42-78); TOTAL CELLS COUNTED % (AUTO) 100 %; WHITE BLOOD COUNT 4.2 10^3/uL (4.0-10.5)
[2019-09-27 08:36] LABS: ALBUMIN 4.5 g/dL (3.5-5.0); ALKALINE PHOSPHATASE 61 U/L (38-126); ANION GAP 8 (5-19); ASPARTATE AMINO TRANSFERASE 22 U/L (14-36); BILIRUBIN,DIRECT 0.1 mg/dL (0.0-0.4); BILIRUBIN,TOTAL 0.6 mg/dL (0.2-1.3); BLOOD UREA NITROGEN 17 mg/dL (7-20); CALCIUM 9.8 mg/dL (8.4-10.2); CARBON DIOXIDE 27 mmol/L (22-30); CHLORIDE 104 mmol/L (98-107); GLUCOSE 108 mg/dL (75-110); POTASSIUM 4.6 mmol/L (3.6-5.0); TOTAL PROTEIN 7.1 g/dL (6.3-8.2)
== END ==
LOC: OD 07:15
PROVIDERS: ATTEND Family Medicine
DX: E55.9 Vitamin D deficiency, unspecified (principal); R73.01 Impaired fasting glucose; E53.8 Deficiency of other specified B group vitamins; Z79.899 Other long term (current) drug therapy
CPT/HCPCS: 36415; 80053; 82306; 82607; 83036; 85025

== ENCOUNTER 2020-03-18 19:04 | Emergency (ER) | payer OTHER, MEDICARE ==
[2020-03-18] MEDS ORDERED: METHOCARBAMOL 500 MG TABLET PO ONE (20:40)
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
[2020-03-18] MEDS ORDERED: ACETAMINOPHEN 325 MG TABLET PO ONE (21:48)
[2020-03-18 22:38] VITALS: BP 133/70
== END 2020-03-18 22:37 | disposition home or self-care (01) ==
LOC: ER 19:04
DX: S40.012A Contusion of left shoulder, initial encounter (principal); M25.512 Pain in left shoulder; M54.2 Cervicalgia; V49.40XA Driver injured in collision with unspecified motor vehicles in traffic accident, initial encounter
CPT/HCPCS: 72040; 99283

== ENCOUNTER → 2020-05-31 | Outpatient (CLI) | payer MEDICARE, OTHER ==
[2020-05-31 08:28] LABS: ABSOLUTE BASOPHILS # (AUTO) 0.1 10^3/uL (0.0-0.2); ABSOLUTE EOSINOPHILS # (AUTO) 0.1 10^3/uL (0.0-0.6); ABSOLUTE LYMPHOCYTES (AUTO) 1.7 10^3/uL (0.5-4.7); ABSOLUTE MONOCYTES (AUTO) 0.4 10^3/uL (0.1-1.4); ABSOLUTE NEUT (AUTO) 2.8 10^3/uL (1.7-8.2); EOSINOPHILS % (AUTO) 2.9 % (0-6); HEMATOCRIT 39.1 % (36.0-47.0); HEMOGLOBIN 13.2 g/dL (12.0-15.5); LYMPHOCYTES % (AUTO) 34.3 % (13-45); MEAN CORPUSCULAR HEMOGLOBIN 29.7 pg (27.0-33.4); MEAN CORPUSCULAR HGB CONC 33.9 g/dL (32.0-36.0); MEAN CORPUSCULAR VOLUME 88 fl (80-97); MONOCYTES % (AUTO) 7.5 % (3-13); PLATELET COUNT 234 10^3/uL (150-450); RED BLOOD COUNT 4.46 10^6/uL (3.72-5.28); RED CELL DISTRIBUTION WIDTH 13.7 % (11.5-14.0); SEGMENTED NEUTROPHILS % (AUTO) 54.3 % (42-78); TOTAL CELLS COUNTED % (AUTO) 100 %; WHITE BLOOD COUNT 5.1 10^3/uL (4.0-10.5)
[2020-05-31 09:09] LABS: ALBUMIN 4.5 g/dL (3.5-5.0); ALKALINE PHOSPHATASE 58 U/L (38-126); ANION GAP 7 (5-19); ASPARTATE AMINO TRANSFERASE 22 U/L (14-36); BILIRUBIN,DIRECT 0.3 mg/dL (0.0-0.4); BILIRUBIN,TOTAL 0.6 mg/dL (0.2-1.3); BLOOD UREA NITROGEN 14 mg/dL (7-20); CALCIUM 9.5 mg/dL (8.4-10.2); CARBON DIOXIDE 31 mmol/L (22-30); CHLORIDE 104 mmol/L (98-107); GLUCOSE 94 mg/dL (75-110); POTASSIUM 4.4 mmol/L (3.6-5.0); TOTAL PROTEIN 6.9 g/dL (6.3-8.2)
== END ==
LOC: OD 07:12
PROVIDERS: ATTEND Family Medicine
DX: E55.9 Vitamin D deficiency, unspecified (principal); R73.01 Impaired fasting glucose; Z13.1 Encounter for screening for diabetes mellitus; Z79.82 Long term (current) use of aspirin
CPT/HCPCS: 36415; 80053; 82306; 83036; 85025

== ENCOUNTER → 2020-09-30 | Outpatient (CLI) | payer MEDICARE, OTHER ==
[2020-09-30 08:21] LABS: ABSOLUTE BASOPHILS # (AUTO) 0.1 10^3/uL (0.0-0.2); ABSOLUTE EOSINOPHILS # (AUTO) 0.1 10^3/uL (0.0-0.6); ABSOLUTE LYMPHOCYTES (AUTO) 1.6 10^3/uL (0.5-4.7); ABSOLUTE MONOCYTES (AUTO) 0.4 10^3/uL (0.1-1.4); ABSOLUTE NEUT (AUTO) 4.2 10^3/uL (1.7-8.2); BASOPHILS % (AUTO) 0.9 % (0-2); EOSINOPHILS % (AUTO) 1.8 % (0-6); HEMATOCRIT 38.9 % (36.0-47.0); HEMOGLOBIN 12.9 g/dL (12.0-15.5); MEAN CORPUSCULAR HEMOGLOBIN 28.8 pg (27.0-33.4); MEAN CORPUSCULAR HGB CONC 33.2 g/dL (32.0-36.0); MEAN CORPUSCULAR VOLUME 87 fl (80-97); MONOCYTES % (AUTO) 6.4 % (3-13); PLATELET COUNT 232 10^3/uL (150-450); RED BLOOD COUNT 4.48 10^6/uL (3.72-5.28); RED CELL DISTRIBUTION WIDTH 13.1 % (11.5-14.0); SEGMENTED NEUTROPHILS % (AUTO) 65.9 % (42-78); TOTAL CELLS COUNTED % (AUTO) 100 %; WHITE BLOOD COUNT 6.4 10^3/uL (4.0-10.5)
[2020-09-30 08:48] LABS: ALBUMIN 4.3 g/dL (3.5-5.0); ALKALINE PHOSPHATASE 65 U/L (38-126); ANION GAP 6 (5-19); ASPARTATE AMINO TRANSFERASE 24 U/L (14-36); BILIRUBIN,DIRECT 0.2 mg/dL (0.0-0.4); BILIRUBIN,TOTAL 0.6 mg/dL (0.2-1.3); BLOOD UREA NITROGEN 19 mg/dL (7-20); CALCIUM 9.4 mg/dL (8.4-10.2); CARBON DIOXIDE 30 mmol/L (22-30); CHLORIDE 104 mmol/L (98-107); GLUCOSE 122 mg/dL (75-110); POTASSIUM 4.1 mmol/L (3.6-5.0); TOTAL PROTEIN 6.9 g/dL (6.3-8.2)
== END ==
LOC: OD 07:05
PROVIDERS: ATTEND Family Medicine
DX: E55.9 Vitamin D deficiency, unspecified (principal); E53.8 Deficiency of other specified B group vitamins; R73.01 Impaired fasting glucose; Z79.899 Other long term (current) drug therapy
CPT/HCPCS: 36415; 80053; 82306; 82607; 83036; 85025